=== PATIENT | male | born 1985 | race Two or more races ===

== ENCOUNTER 2016-12-05 09:19 | Emergency (ER) | payer OTHER ==
--- NOTE | 2016-12-05 09:36 | ED Physician Documentation ---
History of Present Illness - Stated complaint Stated Complaint: LT ARM PX/SWELLING - Chief complaint Chief Complaint: Ext Problem - History obtained from History obtained from: Patient - History of Present Illness Timing: Today - Additonal information Additional information: 31-year-old male previously well awoke this morning with pain in his left elbow. He has a specific area of tenderness and swelling he does not have any redness there and he has not had any fever or chills. He awoke this way and does not recall injuring the elbow previously. He recalls that he had 2 beers to drink last night before going to bed. Review of Systems Constitutional: denies: Fever, Chills, Myalgias, Fatigue Eyes: denies: Decreased vision Ears: denies: Ear pain Nose: denies: Congestion Throat: denies: Sore throat Cardiac: denies: Chest pain / pressure Respiratory: denies: Cough GI: denies: Abdominal Pain, Nausea, Vomiting : denies: Dysuria, Frequency Skin: denies: Rash Musculoskeletal: reports: Extremity pain, Joint pain, Extremity swelling. denies: Neck pain, Back pain Neurologic: denies: Generalized weakness, Focal weakness, Numbness PD PAST MEDICAL HISTORY - Present Medications Home Medications: Ambulatory Orders Medication Instructions Recorded Confirmed No Known Home Medications [No 12/05/16 12/05/16 Known Home Medications] - Allergies Allergies/Adverse Reactions: Allergies Allergy/AdvReac Type Severity Reaction Status Date / Time No Known Drug Allergies Allergy Verified 12/05/16 09:26 PD ED PE NORMAL - Vitals Vital signs reviewed: Yes (hypertensive ) - General General: No acute distress, Well developed/nourished - HEENT HEENT: Atraumatic, PERRL - Respiratory Respiratory: No respiratory distress - Derm Derm: Normal color, Warm and dry, No rash - Extremities Extremities: No deformity, Other (Over the distal humerus on the dorsal surface is a swelling and tenderness. There is no erythema overlying the area and no fluctuance there is no lymphangitic streaking. There is tenderness specifically to this area and there is a joint effusion that is small and palpable and this is too much less extent tender. The range of motion of the elbow was restricted to far flexion secondary to pain at the distal humerus.) - Neuro Neuro: No motor deficit, No sensory deficit - Psych Psych: Normal mood, Normal affect Results - Vitals Vitals: Vital Signs - 24 hr 12/05/16 09:24 Temperature 35.8 C L Heart Rate 80 Respiratory 14 Rate Blood Pressure 127/83 H O2 Saturation 100 Oxygen O2 Source Room air - Rads (name of study) left elbow Radiology: Prelim report reviewed (Impression: No acute bony abnormality identified in the left elbow. No definite joint effusion is seen. Clinical follow-up is recommended for the patient's pain/swelling.), EMP read indepedently, See rad report Procedures - Splint (location) left elbow Splint applied by: Tech Type of splint: Fiberglass, Posterior Other: Patient tolerated well, No complications, Neurovascular intact, Good alignment, Sling provided - Bedside sono Bedside sono by EMP: With use of bedside ultrasound the area of swelling over the distal humerus dorsally, is imaged, the area of maximum tenderness shows swelling only no evidence of fluid collection or septation consistent with cellulitis. There is a joint effusion and this area is not particularly tender to sonographic palpation. PD MEDICAL DECISION MAKING - ED course Complexity details: reviewed results, re-evaluated patient, considered differential, d/w patient ED course: 31-year-old male previously healthy is awoken with pain in his left elbow he does have an area that looks like it was bruised and this is where he has his maximum tenderness. 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 I discussed with the patient tapping the elbow and he is reluctant to have a needle in his elbow joint and I discussed treatment of this conservatively with a splint and sling and return to the emergency department for mounting pain. Departure - Departure Disposition: 01 Home, Self Care Clinical Impression: Left elbow contusion Qualifiers: Encounter type: initial encounter Qualified Code(s): S50.02XA - Contusion of left elbow, initial encounter Condition: Stable Instructions: ED Contusion Elbow Follow-Up: ADAM Dong [Provider Group] Comments: The area of tenderness and swelling looks like a bruise and should behave like a bruise. The pain should be less if you do not use it and should not increase over time. If you have increasing pain and swelling or you develop redness or a fever return to the ED for re-evaluation. Today in the Emergency Department your blood pressure was elevated. This can happen from the stress of the visit itself, from a current illness or circumstance or from uncontrolled hypertension. If you take blood pressure medications take your usual mediations, have your blood pressure re-checked in an appropriate setting and follow up any elevation with your primary care doctor.
--- NOTE | 2016-12-05 10:06 | XRAY Preliminary Report ---
Exam: XR Elbow 3 View LT IMPRESSION: No acute bony abnormality identified at the left elbow. No definite joint effusion is see n. Clinical follow-up is recommended for the patient's pain/swelling. [facility] SITE ID: [id number]
--- NOTE | 2016-12-05 10:08 | XRAY Report ---
EXAM: LEFT ELBOW RADIOGRAPHY EXAM DATE: 12/05/2016 09:46 AM. CLINICAL HISTORY: Pain/swelling at distal humerus. No known trauma. Patient woke up with a sore elbow . COMPARISON: None. TECHNIQUE: 3 views. FINDINGS: Bones: Normal. No fractures or bone lesions. Joints: No dislocation or significant degenerative change. No elevation of the fat pads to indicate a n effusion. Soft Tissues: Unremarkable. IMPRESSION: No acute bony abnormality identified at the left elbow. No definite joint effusion is see n. Clinical follow-up is recommended for the patient's pain/swelling. [facility] Referring Provider Line: [phone] SITE ID: [id number]
[2016-12-05 10:27] VITALS: BP 140/60
== END 2016-12-05 10:26 | disposition home or self-care (01) ==
LOC: ED 09:19
DX: S50.02XA Contusion of left elbow, initial encounter (principal); X58.XXXA Exposure to other specified factors, initial encounter; R03.0 Elevated blood-pressure reading, without diagnosis of hypertension
CPT/HCPCS: 29105; 99282; 99283

== ENCOUNTER 2017-12-06 09:59 | Emergency (ER) | payer OTHER ==
[2017-12-06 10:34] VITALS: BP 131/93
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
== END 2017-12-06 12:00 | disposition home or self-care (01) ==
LOC: ED 09:59
DX: S00.31XA Abrasion of nose, initial encounter (principal); W22.8XXA Striking against or struck by other objects, initial encounter; Y99.0 Civilian activity done for income or pay
CPT/HCPCS: 99282; 99283